=== PATIENT | male | born 1995 | race Caucasian/White ===

== ENCOUNTER 2018-09-08 11:18 | Emergency (ER) | payer OTHER ==
--- NOTE | 2018-09-08 12:28 | ER Document Report ---
ED Eye Complaint - General Chief Complaint: Eye Injury Stated Complaint: EYE INJURY Time Seen by Provider: 09/08/18 12:15 Information source: Patient Notes: Patient is a 22-year-old male who was hit in the right eye with a softball prior to arrival. No loss of consciousness. No vomiting. No weakness or numbness. States he has loss of vision in his right eye. He does not normally wear contacts or glasses. Patient actually denies any pain to the eye or to the periauricular region. He denies any other facial trauma. He denies any neck pain, headache, weakness or numbness. TRAVEL OUTSIDE OF THE [place] IN LAST 30 DAYS: No - HPI Onset: Just prior to arrival - Related Data Allergies/Adverse Reactions: Penicillins Allergy (Verified 09/08/18 11:19) Past Medical History - Social History Smoking Status: Current Every Day Smoker Frequency of alcohol use: None Drug Abuse: None Family History: Reviewed & Not Pertinent Patient has suicidal ideation: No Patient has homicidal ideation: No Renal/ Medical History: Denies: Hx Peritoneal Dialysis Review of Systems - Review of Systems EENT: denies: Ear pain, Ear discharge, Nose pain -: Yes All other systems reviewed and negative Physical Exam - Vital signs Vitals: Temp Pulse Resp BP Pulse Ox 97.4 F 94 18 123/65 97 09/08/18 11:24 09/08/18 11:24 09/08/18 11:24 09/08/18 11:24 09/08/18 11:24 Interpretation: Normal Notes: Reviewed vital signs and nursing note as charted by RN. CONSTITUTIONAL: Alert and oriented and responds appropriately to questions. Well-appearing; well-nourished HEAD: Normocephalic; atraumatic EYES: Patient has some mild periorbital ecchymosis with minimal swelling. Right pupil is nonreactive, irregularly shaped in an oblong pattern, with around 15% area of hyphema to the pupil. Full extraocular range of motion. No obvious protrusion. Actually it is slightly depressed. Patient is only able to see "yellow light". He is not able to count fingers in front of his face ENT: Normal nose; no rhinorrhea; moist mucous membranes; pharynx without lesions noted NECK: Supple without meningismus; non-tender EXT: Normal ROM in all joints; non-tender to palpation; no edema SKIN: No acute lesions noted NEURO: 5/5 bilateral upper and lower extremity strength with sensation intact to light touch PSYCH: The patient's mood and manner are appropriate. Grooming and personal hygiene are appropriate. Course - Re-evaluation Re-evalutation: 09/08/18 12:32 We elevated the head of the bed to 30 degrees. I have made a phone consultation with an studio model in the area who was kind enough to take my call despite not being strategic communications manager. He recommended CT scan of the orbits which I have already ordered and has already been performed. He agrees given my concern of a possible globe rupture, and intraocular pressure testing is not appropriate at this time. Patient is just returned from CT scan and I will await the CT scan result. I do believe that the patient will require transfer for ophthalmology consult in person. 09/08/18 12:[address] scan impression shows that there are displaced fractures of the right orbital floor and right lamina papyracea. The blowout type fracture of the orbital floor sizable at 1.5 x 1.9 cm. No obvious significant fat or rectus herniation. The globe appears to be intact. 09/08/18 13:42 Intraocular pressure was 20 and 21 on repeat examinations. No change in exam otherwise. I was able to call [facility] and speak to the trauma surgical team who recommended this be handled by ophthalmology and ENT. They recommended an ED to ED transfer with ophthalmology and ENT consultation. I was able to talk to the studio model Dr. Geiger who states that she would be happy to see the patient once consulted in the ER. The transfer team has asked me just to transfer the patient emergency room to emergency room. 09/08/18 13:44 Given the size of the orbital blowout fracture, I will provide a dose of antibiotics. - Vital Signs Vital signs: Temp Pulse Resp BP Pulse Ox 97.4 F 71 18 134/70 H 97 09/08/18 11:24 09/08/18 13:02 09/08/18 13:02 09/08/18 13:02 09/08/18 11:24 Critical Care Note - Critical Care Note Total time excluding time spent on procedures (mins): 35 Discharge - Discharge Clinical Impression: Hyphema, right eye, Orbital floor (blow-out) closed fracture Right eye trauma Qualifiers: Encounter type: initial encounter Qualified Code(s): S05.91XA - Unspecified injury of right eye and orbit, initial encounter Condition: Fair Disposition: [facility]
[2018-09-08] MEDS ORDERED: DIPH/PERTUSS(ACELL)/TETANUS VAC/PF 0.5 ML SYR (>=10YO) IM ONE (12:33)
--- NOTE | 2018-09-08 12:45 | RADIOLOGY REPORT (SQ) ---
EXAM DESCRIPTION: CT ORBIT/SELLA WITHOUT COMPLETED DATE/TIME: 09/08/2018 12:26 pm REASON FOR STUDY: 3; softball to right eye COMPARISON: None. TECHNIQUE: Noncontrasted images through the orbits windowed for bone and soft tissue. Additional co mannie and sagittal reconstructed images reviewed. All images stored on PACS. All CT scanners at this facility use dose modulation, iterative reconstruction, and/or weight based d osing when appropriate to reduce radiation dose to as low as reasonably achievable (ALARA). [facility]: Dose Right [facility]: CareDose [facility]: Dose Right [facility]: Teradose 4D [facility]: [employer] RADIATION DOSE: CT Rad equipment meets quality standard of care and radiation dose reduction techniq ues were employed. CTDIvol: 30.4 mGy. DLP: 388 mGy-cm. mGy. LIMITATIONS: None. FINDINGS: FACIAL BONES: Minimally displaced fracture of the right nasal bone. ORBITS: There are displaced fractures of the right orbital floor and right lamina papyracea. Blowout type fracture fragment of the right orbital floor is sizable measuring approximately 1.5 x 1.9 cm. No evidence of significant fat or rectus herniation. Preseptal emphysema about the inferior palpebra . The globe is intact and symmetric by CT. PARANASAL SINUSES: Air-fluid level in the right maxillary sinus. No nasal polyps. Maxillary sinus out lets are patent. SOFT TISSUES: No mass or edema. INFERIOR BRAIN: Limited view. No acute findings. OTHER: No other significant finding. IMPRESSION: 1. There are displaced fractures of the right orbital floor and right lamina papyracea. Blowout type fracture fragment of the right orbital floor is sizable measuring approximately 1.5 x 1 .9 cm. No evidence of significant fat or rectus herniation. Preseptal emphysema about the inferior palpebra. The globe is intact and symmetric by CT. 2. Minimally displaced fracture of the right nasal bone. TECHNICAL DOCUMENTATION: JOB ID: [id number] Quality ID # [id number]: Final reports with documentation of one or more dose reduction techniques (e.g., Au tomated exposure control, adjustment of the mA and/or kV according to patient size, use of iterative reconstruction technique) 2010 [employer] All Rights Reserved Reading location - IP/workstation name: [email or web address]
[2018-09-08] MEDS ORDERED: MORPHINE SULFATE 10 MG/ML INJ IV ONE ×2 (13:01→14:46)
[2018-09-08] MEDS ORDERED: CEFTRIAXONE 1 GM/D5W RTU 1 GM/50 ML RTUPB IV ONE (13:44)
[2018-09-08 14:58] VITALS: BP 140/70
== END 2018-09-08 15:01 | disposition short-term general hospital (02) ==
LOC: ER 11:18
DX: S02.31XA Fracture of orbital floor, right side, initial encounter for closed fracture (principal); S05.11XA Contusion of eyeball and orbital tissues, right eye, initial encounter; W21.07XA Struck by softball, initial encounter; F17.200 Nicotine dependence, unspecified, uncomplicated; Z88.0 Allergy status to penicillin
CPT/HCPCS: 96376; 99291; 90471; 96375; 96365; 70480; 90715; J2270; J0696